=== PATIENT | female | born 2000 | race African-American/Black ===

== ENCOUNTER 2018-05-16 10:16 | Day surgery (SDC) | payer OTHER ==
[2018-05-16 10:39] LABS: HEMATOCRIT 37.8 % (36.0-47.0); HEMOGLOBIN 13.1 g/dl (12.0-15.5); MEAN CORPUSCULAR HEMOGLOBIN 31.4 pg (27.0-33.0); MEAN CORPUSCULAR HGB CONC 34.7 g/dl (32.0-36.5); MEAN CORPUSCULAR VOLUME 90.6 fl (80.0-96.0); PLATELET COUNT, AUTOMATED 235 10^3/uL (150-450); RED BLOOD COUNT 4.17 10^6/uL (4.00-5.40); RED CELL DISTRIBUTION WIDTH 12.1 % (11.5-14.5); WHITE BLOOD COUNT 4.9 10^3/uL (4.0-10.0)
[2018-05-16] MEDS: LR 1,000 ML IV (11:35)
[2018-05-16] MEDS ORDERED: MIDAZOLAM INJ 2 MG/2 ML VIAL (J2250) As Ordered ×2 (13:48→13:59)
[2018-05-16] MEDS ORDERED: fentaNYL 100 MCG/2 ML INJECTION (J3010) As Ordered (13:49)
[2018-05-16] MEDS ORDERED: PROPOFOL 200 MG/20 ML VIAL As Ordered (14:18)
[2018-05-16] MEDS ORDERED: KETOROLAC 60 MG/2 ML VIAL (J1885) As Ordered (14:26)
[2018-05-16] MEDS ORDERED: GLYCOPYRROLATE INJ 0.2 MG/ML 2 ML VIAL As Ordered (14:26)
[2018-05-16] MEDS: LIDOCAINE 1% MDV 20ML VIAL As Ordered (14:35)
[2018-05-16] MEDS: SILVER NITRATE APPLICATOR As Ordered (14:38)
== END 2018-05-16 15:55 | disposition home or self-care (01) ==
LOC: M SDC 15:55
DX: O02.1 Missed abortion (principal)
CPT/HCPCS: 59820

== ENCOUNTER 2018-08-08 06:19 | Emergency (ER) | payer OTHER ==
[2018-08-08] MEDS: diphenhydrAMINE 50 MG CAP PO (07:30)
[2018-08-08] MEDS: methylPREDNISolone INJ 125 MG/2 ML VIAL (J2930) IM (07:42)
== END 2018-08-08 08:40 | disposition home or self-care (01) ==
LOC: M ED 06:19
DX: R22.0 Localized swelling, mass and lump, head (principal)
CPT/HCPCS: J2930